=== PATIENT | male | born 1945 | race Caucasian/White ===

== ENCOUNTER 2016-05-31 15:55 | Emergency (ER) | payer SELFPAY ==
[2013-03-12 10:36] VITALS: BMI 38.4
[~2016-05-31 15:55] MED LIST: BAYER CHEWABLE81 MG PO; CARBATROL 200200 MG PO; COZAAR50 MG PO; EFFIENT10 MG PO; GLUCOPHAGE850 MG PO; HCTZ25 MG PO; IMDUR30 MG PO; LODINE300 MG PO; LOPRESSOR25 MG PO; PAMELOR10 MG; PAMELOR75 MG PO; PLAVIX75 MG PO; PRAVACHOL40 MG PO; PRILOSEC20 MG PO; ZOCOR20 MG PO; ZOLOFT100 MG PO
== END 2016-05-31 17:48 | disposition home or self-care (01) ==
LOC: D.ER 15:55
DX: S16.1XXA Strain of muscle, fascia and tendon at neck level, initial encounter (principal); V89.2XXA Person injured in unspecified motor-vehicle accident, traffic, initial encounter; Y93.89 Activity, other specified; Y92.410 Unspecified street and highway as the place of occurrence of the external cause; S39.012A Strain of muscle, fascia and tendon of lower back, initial encounter; E11.9 Type 2 diabetes mellitus without complications; I10 Essential (primary) hypertension

== ENCOUNTER 2016-06-28 01:17 | Emergency (ER) | payer SELFPAY ==
[2013-03-12 10:36] VITALS: BMI 38.4
[2016-06-28 02:02] LABS: BASOPHILS 0.3 % (0.0-2.0); EOSINOPHILS 6.2 % (0-7); HEMATOCRIT 40.5 % (42.0-54.0); HEMOGLOBIN 13.5 g/dL (13.5-17.5); IMMATURE GRANULOCYTES 0.9 % (0-5); LYMPHOCYTES 25.5 % (15-50); MCH 28.7 pg (26.0-34.0); MCHC 33.3 g/dL (31.0-37.0); MCV 86.2 fL (80.0-100.0); MEAN PLATELET VOLUME 9.4 fL (7.4-10.4); MONOCYTES 8.7 % (2-11); NEUTROPHILS 58.4 % (40-80); PLATELET COUNT 256 10x3/uL (130-400); RDW 13.5 % (11.5-14.5); WBC 8.6 10x3/uL (4.8-10.8)
[2016-06-28 02:16] LABS: ALBUMIN 3.4 g/dL (3.4-5.0); ALKALINE PHOSPHATASE 141 U/L (46-116); ALT (SGPT) 31 U/L (10-68); BILIRUBIN - TOTAL 0.22 mg/dL (0.2-1.3); CALC OSMOLALITY 266 mosm/kg (275-300); CALCIUM 8.5 mg/dL (8.5-10.1); CARBON DIOXIDE 27.5 mmol/L (21.0-32.0); CHLORIDE - SERUM 95 mmol/L (98-107); CREATININE - SERUM 0.9 mg/dL (0.6-1.3); GLUCOSE 153 mg/dL (74-106); POTASSIUM - SERUM 4.2 mmol/L (3.5-5.1); PROTEIN - SERUM 7.1 g/dL (6.4-8.2); SODIUM 131 mmol/L (136-145); UREA NITROGEN 15 mg/dL (7-18); eGFR NON AFRICAN AMERICAN 89 mL/min (90-120)
[2016-06-28 02:27] LABS: CHOL - HDL RATIO 2.8 ratio (2.3-4.9); CHOLESTEROL, TOTAL 133 mg/dL (0-200); CKMB 1.1 U/L (0.0-3.6); CREATINE KINASE 102 UL (21-232); HDL CHOLESTEROL 48 mg/dL (32-96); LDL CHOLESTEROL 48 mg/dL (0-100); TRIGLYCERIDE 187 mg/dL (30-200)
[2016-06-28 02:28] LABS: TROPONIN-I < 0.017 ng/mL (0.000-0.060)
== END 2016-06-28 04:04 | disposition other institution (70) ==
LOC: D.ER 01:17
PROVIDERS: Emergency Medicine
DX: I20.0 Unstable angina (principal); R07.9 Chest pain, unspecified; I44.0 Atrioventricular block, first degree